=== PATIENT | female | born 2000 | race Caucasian/White ===

== ENCOUNTER 2018-08-28 11:17 | Day surgery (SDC) | payer BC ==
[~2018-08-28] VITALS: Ht 165.1 cm; Wt 120.3 kg
[2018-08-28] VITALS (14 sets, daily range): BP systolic 119–149; BP diastolic 67–82; PULSE 20–76; RESP 14–22; Ht 165.1 cm; Wt 120.3 kg
[~2018-08-28 11:17] MED LIST: DESFLURANE 15 MIN ONE; LIDOCAINE 2% (SDV) 5 ML INJ ONE
[2018-08-28] MEDS ORDERED: CEFAZOLIN 2 GM/50 ML (PMX) 50 ML IVPB ONE (12:00)
[2018-08-28] MEDS ORDERED: SOD CHLORIDE 0.9% 1,000 ML IV ONE (12:00)
[2018-08-28] MEDS ORDERED: BUPIVACAINE 0.25% (MPF) 30 ML INJ ONE (12:06)
--- NOTE | 2018-08-28 12:14 | PREAC ---
Date/Time of Note Date/Time of Note DATE: 08/28/18 TIME: 12:12 Anesthesia Eval and Record Evaluation Time Pre-Procedure Interview DATE: 08/28/18 TIME: 12:12 Age 17 Sex female NPO: 8 hrs Preoperative diagnosis cholelithiasis Planned procedure laparoscopic cholecystectomy Past Medical History Past Medical History: Includes GI: Morbid obesity Surgery & Anesthesia Issues No known issue Meds Anticoagulation: No Beta Candis within 24 hr: No Reason Beta Candis not given: Pt. not on B-Candis No Active Prescriptions or Reported Meds Current Medications Cefazolin Sodium/ Dextrose 50 ml @ 100 mls/hr PRE-OP ONCE IVPB ; Start 08/28/18 at 12:00; Stop 08/28/18 at 12:29 Sodium Chloride 1,000 ml @ 75 mls/hr [id number] ONCE IV ; Start 08/28/18 at 12:00; Stop 08/29/18 at 01:19 Meds reviewed: Yes Allergies Coded Allergies: No Known Allergy (Unverified , 08/28/18) Allergies Reviewed: Yes Labs/Studies Labs Reviewed: Reviewed by anesthesiologist test: Negative Pre-procedure Exam Last vitals Vital Signs Date Temp Pulse Resp B/P (MAP) Pulse Ox O2 O2 Flow FiO2 Time Delivery Rate 08/28/18 98.1 66 20 129/81 98 Room Air 12:06 (97) Airway: Adequate mouth opening, Adequate thyromental dist Mallampati: Mallampati II Teeth: Normal Lung: Normal Heart: Normal ASA Physical Status ASA physical status: 3 Emergency: None Planned Anesthetic General/MAC: ETT Planned Pain Management Parenteral pain med Pre-operative Attestations Prior to commencing anesthesia and surgery, the patient was re-evaluated, there was verification of: *The patient's identity *The results of appropriate recent lab work and preoperative vital signs *The above evaluation not changing prior to induction *Anesthetic plan, risk benefits, alternative and complications discussed with patient/family; questions answered; patient/family understands, accepts and wishes to proceed. NAIMA SCOTT Aug 28, 2018 12:14
[2018-08-28] MEDS ORDERED: PROPOFOL 20 ML ONE (12:40)
[2018-08-28] MEDS ORDERED: ROCURONIUM 50 MG INJ ONE (12:41)
[2018-08-28] MEDS ORDERED: SUCCINYLCHOLINE CHLORIDE 100 MG/5 ML SYG IV ONE (12:49)
[2018-08-28] MEDS ORDERED: DEXAMETHASONE 4 MG/ML 5 ML INJ ONE (12:50)
[2018-08-28] MEDS ORDERED: CEFAZOLIN 1 GM INJ ONE (12:50)
[2018-08-28] MEDS ORDERED: ONDANSETRON 4 MG INJ ONE (12:50)
[2018-08-28] MEDS ORDERED: NEOSTIGMINE 10 MG INJ ONE (13:28)
[2018-08-28] MEDS ORDERED: GLYCOPYRROLATE 0.4 MG INJ ONE (13:29)
[2018-08-28] MEDS ORDERED: HYDROCODONE/APAP (5/325) TAB PO ONE (13:30)
--- NOTE | 2018-08-28 13:30 | OPR ---
Date/Time of Note Date/Time of Note DATE: 08/28/18 TIME: 13:27 Operative Report Procedure Date: Aug 28, 2018 Preoperative Diagnosis symptomatic gallstones Postoperative Diagnosis same Operation/Procedure Performed 1. laparoscopic cholecystectomy 2. therapeutic injection of subcutaneous local anesthesia Surgeon see signature line Lockstitch Waistband Setter none Anesthesia Type: general Estimated Blood Loss: 10 - 50 ml's Transfusion none Specimen gallbladder Grafts/Implants none Complications none Pt Condition Post Procedure: stable Indications This is a 17-year-old female with a BMI of 44. She is morbidly obese. She has symptomatic gallstones and required surgical excision of her gallbladder. Risks alternatives benefits and percent were discussed the patient. In particular potential complications including but not limited to bleeding infection due to her morbid obesity increased rates of infection and injury to common bile duct intra-abdominal organ injury were discussed the patient. Ample time was given for questions and all questions were answered and she expressed understanding and consents to the operation. Procedure Description Patient taken to the OR and prepped and draped in usual sterile fashion. Surgical time was performed. IV antibiotics given. Infraumbilical incision was made transversely with a 15 blade. Dissection with cautery was carried onto the fascia. The fascia was grasped with Jordyn's and divided with curved Georges scissors. 0 Vicryl U stitch was placed into the fascia. Regalado trocar was introduced. Pneumoperitoneum is established. Midepigastric 12 mm optical trochars placed under direct position. Right upper quadrant upper flank 5 mm optical trochars were placed under direct position. Upon initial inspection the gallbladder was distended and retracted in a lateral and cephalad direction. [place] graspers were used to dissect out the cystic duct and cystic artery. The critical view was established. The cystic duct is divided 3 clips proximally clipped distal division performed with lap scopic scissors. Cystic artery was divided 3 clips proximally clipped distal and the division was performed laparoscopic scissors. The gallbladder was taken down from the gallbladder bed. Good hemostasis established in the gallbladder bed. The gallbladder was retrieved using Endo Catch bag. Ports removed under direct position. 0 Vicryl was tied down. Skin is closed using skin merly. Ther apeutic contains local anesthesia was injected at the incision site. Dry dressings were applied. Bob BRUCE Aug 28, 2018 13:30
--- NOTE | 2018-08-28 13:44 | PAC ---
Date/Time of Note Date/Time of Note DATE: 08/28/18 TIME: 13:43 Post-Anesthesia Notes Post-Anesthesia Note Last documented vital signs Vital Signs Date Temp Pulse Resp B/P (MAP) Pulse Ox O2 O2 Flow FiO2 Time Delivery Rate 08/28/18 98.1 87 144/78 99 13:37 08/28/18 76 18 149/78 95 Room Air 13:36 (101) Activity: WNL Respiratory function: WNL Cardiovascular function: WNL Mental status: Baseline Pain reasonably controlled: Yes Hydration appropriate: Yes Nausea/Vomiting absent: Yes NAIMA SCOTT Aug 28, 2018 13:44
[2018-08-28] MEDS ORDERED: OXYCODONE/ACETAMINOPHEN (5/325) TAB PO PRN ×2 (14:00)
[2018-08-28] MEDS ORDERED: MEPERIDINE 25 MG INJ IV PRN (14:00)
[2018-08-28] MEDS ORDERED: HYDROmorphONE 1 MG/5 ML IV SYRINGE IV PRN ×3 (14:00)
[2018-08-28] MEDS ORDERED: MIDAZOLAM 1 MG/ML 2 ML INJ IV PRN (14:00)
[2018-08-28] MEDS ORDERED: FENTAnyl 50 MCG/ML VIAL IV PRN ×3 (14:00)
[2018-08-28] MEDS ORDERED: METOCLOPRAMIDE 10 MG INJ IV PRN (14:00)
[2018-08-28] MEDS ORDERED: hydrALAzine 20 MG INJ IV PRN (14:00)
[2018-08-28] MEDS ORDERED: LABETALOL HCL 20MG INJ IV PRN (14:00)
[2018-08-28] MEDS ORDERED: ONDANSETRON 4 MG INJ IV PRN (14:00)
[2018-08-28] MEDS ORDERED: DIPHENHYDRAMINE 50 MG INJ IV PRN (14:00)
[2018-08-28] MEDS ORDERED: ALBUTEROL 0.083% (NEB) 2.5 MG/3 ML AMP HHN PRN (14:00)
[2018-08-28] MEDS ORDERED: EPHEDrine SULFATE 50 MG/5 ML SYG IV PRN (14:00)
== END 2018-08-28 15:35 | disposition home or self-care (01) ==
LOC: SDS 11:17
PROVIDERS: ATTEND Surgery
DX: K80.10 Calculus of gallbladder with chronic cholecystitis without obstruction (principal)
CPT/HCPCS: 47562; 88304; J0690; J1100; J1170; J2405; J2710; J3010; Z7512; Z7610

== ENCOUNTER 2018-09-06 23:36 | Emergency (ER) | payer BC ==
[~2018-09-06] VITALS: Ht 167.6 cm; Wt 113.6 kg
[2018-09-07 00:06] VITALS: Ht 167.6 cm; Wt 113.6 kg
--- NOTE | 2018-09-07 05:37 | ERD ---
ER Documentation Chief Complaint Chief Complaint S/P CHOLECYSTECTOMY; SURGICAL INCISION/WOUND CHECK HPI This is a 17-year-old female who presents to the emergency department, accompanied by her mother for a status post cholecystectomy surgical site check. Stated that surgery was done on 08/28/[address] Darnell. LMP: Denies headache, head injury, loss of consciousness, dizziness, neck pain, neck stiffness, throat pain, difficulty swallowing, difficulty breathing lying flat, shoulder pain, chest pain, back pain, abdominal pain, nausea, vomiting, constipation, diarrhea, urinary symptoms, or possibility being , loss of bowel and bladder control, trauma, injury, falls, difficulty walking due to pain, numbness or tingling sensation, calf pain, recent travel, recent major surgery in the last 3 weeks, calf pain, recent long travel, recent exposure to any illness, recent antibiotic use in the last 3 months, fever, chills, seizures. Past medical history: Social: Denies smoking, use of alcoholic beverages, use of illegal drugs. ROS All systems reviewed and are negative except as per history of present illness. Medications Home Meds Active Scripts Acetaminophen* (Tylophen*) 500 Mg Capsule, 1 CAP PO Q6H PRN for PAIN AND OR ELEVATED TEMP, #20 CAP Prov:MEG FRANKS 09/07/18 Allergies Allergies: Coded Allergies: No Known Allergy (Unverified , 08/28/18) PMhx/Soc History of Surgery: No Anesthesia Reaction: No Hx Neurological Disorder: No Hx Respiratory Disorders: No Hx Cardiac Disorders: No Hx Psychiatric Problems: No Hx Miscellaneous Medical Probl: No Hx Alcohol Use: No Hx Substance Use: No Hx Tobacco Use: No Physical Exam Vitals Physical Exam Const: No acute distress Head: Atraumatic Eyes: Normal Conjunctiva ENT: Normal External Ears, Nose and Mouth. Neck: Full range of motion. No meningismus. Resp: Clear to auscultation bilaterally Cardio: Regular rate and rhythm, no murmurs Abd: Soft, non tender, non distended. Normal bowel sounds Skin: No petechiae or rashes. Surgical site has merly that are intact. No dehiscence. No bleeding. No discharge. No induration. No signs of abscess formation. Back: No midline or flank tenderness Ext: No cyanosis, or edema Neur: Awake and alert Psych: Normal Mood and Affect Procedures/MDM This is a 17-year-old female who presents to the emergency department, accompanied by her mother for a status post cholecystectomy surgical site check. Stated that surgery was done on 08/28/[address] Darnell. Diagnostic tests: Treatment: Not applicable. Re-evaluation: Not applicable. Differential diagnosis I have low suspicion for dehiscence, abscess formation, sepsis, hemorrhage. Final diagnosis: Wound check. Prescription: Tylenol. Follow-up with PCP in the next 24-48 hours. Follow-up with surgeon in the next 24-48 hours. Come back here in the emergency department for any new symptoms or any worsening symptoms. All questions and concerns were answered. Patient and family members verbalized understanding and agreed with plan of care. Hemodynamically stable on discharge. Departure Diagnosis: Primary Impression: Encounter for wound re-check Condition: Stable Additional Instructions: Follow-up with PCP in the next 24-48 hours. Follow-up with surgeon in the next 24-48 hours. Come back here in the emergency department for any new symptoms or any worsening symptoms. MEG FRANKS Sep 07, 2018 05:37
[2018-09-07] MEDS ORDERED: ACET500C5 PO (05:38)
[2018-09-07 05:55] VITALS: BP 115/76; PULSE 86; RESP 16
== END 2018-09-07 05:55 | disposition home or self-care (01) ==
LOC: FTE 23:36
DX: Z48.01 Encounter for change or removal of surgical wound dressing (principal)
CPT/HCPCS: 99282